=== PATIENT | female | born 1995 | race Two or more races ===

== ENCOUNTER 2019-04-03 05:59 | Emergency (ER) | payer SELFPAY ==
[~2019-04-03] VITALS: Ht 162.6 cm; Wt 72.6 kg
[2019-04-03] MEDS ORDERED: HYDROcodone-ACET 10/325MG TAB PO ONE (08:30)
[2019-04-03 09:57] VITALS: BP 111/58
== END 2019-04-03 10:00 | disposition home or self-care (01) ==
LOC: ER 05:59 → EDBD 05:59 → ER 10:00
DX: S32.038A Other fracture of third lumbar vertebra, initial encounter for closed fracture (principal); V43.62XA Car passenger injured in collision with other type car in traffic accident, initial encounter; Y93.89 Activity, other specified; Y99.8 Other external cause status; Y92.410 Unspecified street and highway as the place of occurrence of the external cause
CPT/HCPCS: 70450; 71250; 72125; 74176

== ENCOUNTER 2020-09-29 21:47 | Emergency (ER) | payer MEDICAID, OTHER ==
[~2020-09-29] VITALS: Ht 162.6 cm; Wt 90.7 kg
[2020-09-29 22:59] LABS: Basophils # (auto) 0 10 ^3/uL (0-0.2); Basophils % (auto) 0.4 % (0.0-2.0); Eosinophils # (auto) 0.1 10 ^3/uL (0-0.8); Hematocrit 38.3 % (36.0-46.0); Hemoglobin 12.8 g/dL (12.2-16.2); Lymphocytes # (auto) 2.5 10 ^3/uL (0.4-5.4); Lymphocytes % (auto) 33.9 % (10.0-50.0); Mean Corpuscular Hemoglobin 28.8 pg (28.0-32.0); Mean Corpuscular Hgb Conc. 33.5 g/dL (32.0-36.0); Mean Corpuscular Volume 86.1 fL (80.0-100.0); Monocytes # (auto) 0.5 10 ^3/uL (0-1.3); Neutrophils # (auto) 4.2 10 ^3/uL (1.6-8.6); Neutrophils % (auto) 57.7 % (37.0-80.0); Platelet Count (auto) 286 10^3/uL (140-450); Red Blood Cells 4.44 10^6/uL (4.0-5.20); Red Cell Distribution Width 14.1 % (11.8-14.3); White Blood Cell 7.3 10^3/uL (4.4-10.8)
[2020-09-29 23:17] LABS: BUN/Creatinine Ratio 8.5; Calcium 8.6 mg/dL (8.5-10.1); Potassium 3.3 mmol/L (3.5-5.1)
[2020-09-29 23:19] LABS: Bilirubin, Total 0.5 mg/dL (0.2-1.0)
[2020-09-30] MEDS ORDERED: ACETAMINOPHEN 325 MG TAB PO ONE (02:30)
[2020-09-30 02:56] VITALS: BP 117/78
== END 2020-09-30 03:18 | disposition home or self-care (01) ==
LOC: ER 21:48
DX: O26.891 Other specified pregnancy related conditions, first trimester (principal); R10.9 Unspecified abdominal pain; Z3A.01 Less than 8 weeks gestation of pregnancy
CPT/HCPCS: 36415; 76801; 76817; 80053; 84702; 85025